=== PATIENT | female | born 1965 | race Caucasian/White ===

== ENCOUNTER 2024-08-04 10:42 | Outpatient (CLI) | payer BC | END 2024-08-04 10:43 | disposition home or self-care (01) | LOC: CSHMRI 10:42 | PROVIDERS: ATTEND Specialist | DX: M50.123 Cervical disc disorder at C6-C7 level with radiculopathy (principal); M47.22 Other spondylosis with radiculopathy, cervical region | CPT/HCPCS: 72141 ==